=== PATIENT | female | born 1960 ===

== ENCOUNTER 2025-05-31 04:57 | Emergency (ER) | payer MEDICARE, MEDICAID ==
[~2025-05-31] VITALS: Ht 165.1 cm; Wt 60.0 kg
--- NOTE | 2025-05-31 09:24 | Physician Documentation ---
Addendum CHIEF COMPLAINT/HPI: The patient is a 64-year-old female who underwent oral surgery on May 19, 12 days ago, and was prescribed amoxicillin. She took it for three days but noted facial swelling and thought she might be allergic to it so she stopped. She is scheduled to have sutures in her mouth removed in two days. This surgery was performed by Dr. Chen in [place]. She is requesting an alternative antibiotic. She has no chills or fever. She has little or no facial swelling. She is complaining that her mouth is sore. REVIEW OF SYSTEMS: Constitutional: Denies chills, fatigue, fever, weight gain or weight loss. HEENT: Denies hearing loss, sinus pressure or visual changes. Respiratory: Denies cough, shortness of breath or wheezing. Cardiovascular: Denies chest pain, pain while walking (claudication), edema or palpitations. PHYSICAL EXAMINATION: Vitals and nursing note reviewed. Constitutional: General: Patient is awake, alert, oriented x 4 in no acute distress and well appearing. Speech is clear and lucid. Appearance: Normal appearance. Patient is not ill-appearing, toxic-appearing or diaphoretic. HENT: Head: Normocephalic and atraumatic. Mouth: Mucous membranes are moist. Pharynx: Oropharynx reveals sutures in the soft palate in the lower anterior gum line. The gum line appears inflamed but there is no drainage. Eyes: General: No scleral icterus. Extraocular Movements: Extraocular movements intact. Pupils: Pupils are equal, round, and reactive to light. Neck: Supple, no Kernig or Brudzinski sign. MEDICAL DECISION MAKING: The patient will be seen in two days. She does not appear toxic or septic. I am going to prescribe three days of clindamycin, enough to get her to her appointment. Departure Disposition: HOME / SELF CARE / HOMELESS Impression: Primary Impression: Encounter for postoperative wound check Condition: Stable Prescriptions Clindamycin HCl (Clindamycin HCl CAPSULE) 150 Mg Capsule 2 CAP PO TID, #18 CAP Prov: BAMBI HARRINGTON MD 05/31/25 BAMBI HARRINGTON MD May 31, 2025 09:24
[2025-05-31] MEDS ORDERED: CLIN-214 PO (09:33)
[2025-05-31 09:44] VITALS: BP 145/72; PULSE 63; RESP 16; TEMP 98; O2SAT 98
== END 2025-05-31 09:43 | disposition home or self-care (01) ==
LOC: ER 04:58
DX: K13.79 Other lesions of oral mucosa (principal)
CPT/HCPCS: 99283